=== PATIENT | female | born 1985 | race American Indian/Alaskan Native ===

== ENCOUNTER → 2017-03-02 | Emergency (ER) | payer SELFPAY ==
[~2017-03-02] MED LIST: MOTRIN PO ONE; TYLENOL/CODEINE PO ONE
--- NOTE | 2017-03-02 19:21 | Emergency Department Report ---
HPI - General Chief Complaint: Upper Respiratory Infection Time Seen by Provider: 03/02/17 18:30 - HPI HPI: Patient here with cold and flulike symptoms for 2 days. Reports body aches 8 out of 10. Taking [id number] education without any relief. Denies any nausea or vomiting. Denies any abdominal or back pain. Denies any chest pain or shortness of breath. Denies any neck pain or stiffness. Denies any urinary burning frequency or urgency. Last menstrual period was 02/05/2017. ED Past Medical Hx - Past Medical History Previous Medical History?: Yes - Surgical History Past Surgical History?: Yes Additional Surgical History: x 2 - Family History Family history: no significant - Social History Smoking Status: Current Some Day Smoker Substance Use Type: Alcohol, Marijuana, Non Opiate Pain - Medications Home Medications: Home Medications Medication Instructions Recorded Confirmed Last Taken Type Cetirizine HCl [ZyrTEC] 10 mg PO QDAY 14 Days #14 capsule 03/02/17 Unknown Rx Ibuprofen [Motrin] 600 mg PO Q8H PRN 4 Days #12 tablet 03/02/17 Unknown Rx guaiFENesin/CODEINE [Robitussin AC] 5 ml PO Q12H PRN #50 ml 03/02/17 Unknown Rx ED Review of Systems ROS: Stated complaint: FLU LIKE SYMPTOMS Other details as noted in HPI Comment: All other systems reviewed and negative Constitutional: chills, fever Eyes: denies: eye discharge ENT: congestion. denies: ear pain, throat pain Respiratory: cough. denies: orthopnea, shortness of breath, SOB with exertion, SOB at rest, stridor, wheezing Cardiovascular: denies: chest pain, palpitations, dyspnea on exertion, orthopnea , edema, syncope, paroxysmal nocturnal dyspnea Gastrointestinal: denies: abdominal pain, nausea, vomiting, diarrhea, constipation, hematemesis, melena, hematochezia Genitourinary: denies: dysuria, hematuria Musculoskeletal: myalgia. denies: back pain, joint swelling, arthralgia Skin: denies: rash, pruritus Neurological: headache. denies: weakness, numbness, paresthesias, confusion, abnormal gait, vertigo Physical Exam - Physical Exam Vital Signs: Vital Signs 03/02/17 15:31 Temperature 99 F Pulse Rate 103 H Respiratory 18 Rate Blood Pressure 114/62 O2 Sat by Pulse 100 Oximetry Vital Signs 03/02/17 03/02/17 15:31 19:45 Temperature 99 F Pulse Rate 103 H 78 Respiratory 18 20 Rate Blood Pressure 114/62 Blood Pressure 127/72 [Right] O2 Sat by Pulse 100 100 Oximetry General: This is a 31-year-old female well-nourished well-developed nontoxic in appearance. Physical Exam: Head: Normocephalic atraumatic Ears:BIateral TM congested without erythema and loss of bony landmarks. Balaji EAC with normal exam. No mastoid bone tenderness. Mouth: Moist, no pharyngeal erythema or exudate . No tonsillar erythema or exudate. UVULA midline and oral airways patent. No peritonsillar abscess Neck: Nontender to palpate, supple, normal range of motion. No adenopathy. No c- spine tenderness. Abdomen: Tender to palpate in all quadrants, no guarding or rebound tenderness. Positive bowel sounds in all quadrants and no CVA tenderness. Nose: Bilateral nasal mucosa congested with clear drainage. Maxillary and frontal sinuses non-tender to palpate. Eyes: Sclerae and conjunctiva without injection. Bilateral pupils equal and reactive to light. Bilateral lids are normal. Normal accommodation.BEOMI Lungs: Clear to auscultate bilaterally, no rhonchi wheezes or rales. Normal work of breathing and no chest wall tenderness, cough CV: S1, S2. Regular rate and rhythm negative murmur. Capillary refill is less than 3 seconds Skin: Clean dry and intact, no rashes or lesions Psych: Normal mood and behavior ED Course Vital Signs 03/02/17 15:31 Temperature 99 F Pulse Rate 103 H Respiratory 18 Rate Blood Pressure 114/62 O2 Sat by Pulse 100 Oximetry Vital Signs 03/02/17 03/02/17 15:31 19:45 Temperature 99 F Pulse Rate 103 H 78 Respiratory 18 20 Rate Blood Pressure 114/62 Blood Pressure 127/72 [Right] O2 Sat by Pulse 100 100 Oximetry - Reevaluation(s) Reevaluation #1: 03/02/17 20:11 Patient orally hydrated in the emergency room and tolerated well. She was given Tylenol with Codeine 10 mils by mouth and ibuprofen 800 mg by mouth for cough and body aches. ED Medical Decision Making - Medical Decision Making ED course: She is here with flulike symptoms reported cough, body aches 2 days. Patient found to have acute viral syndrome and I discussed with her that there is no need to do a flu test is most the time to test is negative and she can be positive for a virus but it would not show because it might be a different strain. I also discussed with her taken Tamiflu and she chose that she does not want that. I discussed the patient that she needs to increase her fluid intake, take vitamin C and other immune system booster and I will place her on medication for cough, pain in fever and Zyrtec to help to relieve congestion. Patient understands that she needs to rest for at least 2-3 days. I told her she will need to follow up with her primary care physician in 2 days and if she does not have a primary care physician she follow-up at [facility]. Patient was understanding the discharge instruction and treatment plan and discharged home with her family stable condition with prescription for Motrin, guaifenesin with codeine and Zyrtec. Critical care attestation.: If time is entered above; I have spent that time in minutes in the direct care of this critically ill patient, excluding procedure time. ED Disposition Clinical Impression: Acute viral syndrome, URI with cough and congestion Disposition: DC-01 TO HOME OR SELFCARE Is pt being admited?: No Does the pt Need Aspirin: No Condition: Stable Instructions: Viral Syndrome (ED), Acute Cough (ED) Additional Instructions: Please increase her fluid intake to 2-3 L of liquid per dates includes orange juice, Gatorade and/or water. Take Motrin as prescribed for body aches and/or fever. Please rest for 3 days and he'll need to follow-up with primary care physician in 2 days. If you do not have a primary care physician U cane and follow-up at [facility]. Cough medicine that your prescribed causes drowsiness so please do not drive or operate heavy machinery while taking this medication. Take Zyrtec to relieve nasal congestion. Please return to the emergency room if his symptoms worsens Prescriptions: Cetirizine HCl [ZyrTEC] 10 mg PO QDAY 14 Days #14 capsule guaiFENesin/CODEINE [Robitussin AC] 5 ml PO Q12H PRN #50 ml PRN Reason: Cough Ibuprofen [Motrin] 600 mg PO Q8H PRN 4 Days #12 tablet PRN Reason: PAIN and FEVER Referrals: PRIMARY CARE,MD [Primary Care Provider] - 03/04/17 [facility] [Outside] - 03/04/17 Forms: Work/School Release Form(ED)
[2017-03-02 19:46] VITALS: BP 127/72
== END | disposition home or self-care (01) ==
LOC: ED 14:10
DX: J06.9 Acute upper respiratory infection, unspecified (principal); B34.9 Viral infection, unspecified; F17.200 Nicotine dependence, unspecified, uncomplicated; F12.10 Cannabis abuse, uncomplicated
CPT/HCPCS: 99282